=== PATIENT | male | born 1975 | race Caucasian/White ===

== ENCOUNTER 2021-12-31 11:08 | Emergency (ER) | payer OTHER, SELFPAY ==
[2021-12-31 11:18] VITALS: BP 113/76; PULSE 88; RESP 12; TEMP 36.4; O2SAT 100
--- NOTE | 2021-12-31 11:29 | ED.URI ---
HPI - URI/Sore Throat General Chief Complaint: Upper Respiratory Infection Stated Complaint: cough, congestion Time Seen by Provider: 12/31/21 11:30 Source: patient Mode of arrival: ambulatory Limitations: no limitations History of Present Illness HPI Narrative: Carlyle Myers is a 46 yo male with a PMH of high cholesterol, who said symptoms since last of sore throat and congestion and cough when he lies down. He has taken NyQuil Related Data Allergies Allergy/AdvReac Type Severity Reaction Status Date / Time amoxicillin Allergy Unknown Skin Verified 12/31/21 11:15 Reaction cephalexin Allergy Unknown Skin Verified 12/31/21 11:15 Reaction Review of Systems Review of Systems: CONSTITUTIONAL: Denies fever, chills, sweats. EYES: Denies visual changes, redness, discharge. ENT: Denies rhinorrhea, has congestion, has sore throat, otalgia. CARDIOVASCULAR: Denies chest pain, palpitations, edema. RESPIRATORY: Denies dyspnea, wheezing, has cough GASTROINTESTINAL: Denies abdominal pain, nausea, vomiting, diarrhea. GENITOURINARY: Denies dysuria, hematuria, abnormal discharge SKIN: Denies rash or itching. NEUROLOGIC: Denies numbness, or focal weakness. PSYCHIATRIC: Denies anxiety or depression. [facility] Past Medical History Medical History History of chicken pox Overweight (BMI 25.0-29.9) Family History Family History Father Heart disease Hypercholesterolemia Malignant neoplasm of prostate Social History Social History Alcohol intake: current Comments At time of signature, I agree with nursing past medical, surgical, social and family history. There is no relevant family history pertinent to the presenting complaint. Exam Narrative: GENERAL: This is a well-nourished, well-developed patient, in mild distress. HEAD: normocephalic, atraumatic. EYES: Sclera clear/white. Vision is grossly intact. EARS: External ears normal, auditory canals clear and without drainage, TMs normal without perforation. Hearing grossly intact. NOSE: External nose normal with nasal discharge, nares without redness, no rhinorrhea. THROAT: Mucous membranes moist, posterior pharynx erythema NECK: Neck supple, non-tender CARDIOVASCULAR: Regular rate and rhythm without murmurs, gallops, or rubs. RESPIRATORY: Clear to auscultation. Breath sounds equal bilaterally. No wheezes, rales, or rhonchi. GASTROINTESTINAL: Abdomen soft, non-tender, SKIN: warm, intact with no suspicious lesions or rash, good texture and turgor. NEURO: awake, alert, and oriented to person, place and time. There were no obvious focal neurologic abnormalities. Steady gait EXTREMITIES: Normal range of motion. BACK: Nontender without deformity Course Course Emergency Course: Patient comes to [facility] with complaints of sore throat cough and congestion x7 days COVID test done Started on Tessalon, prednisone Push fluids May use Cepacol for sore throat Level of Care: Express Care Visit Vital Signs Vital signs: Vital Signs Temperature 97.6 F 12/31/21 11:18 Pulse Rate 88 12/31/21 11:18 Respiratory Rate 12 12/31/21 11:18 Blood Pressure 113/76 12/31/21 11:18 Pulse Oximetry 100 12/31/21 11:18 Temperature 97.6 F 12/31/21 11:18 Pulse Rate 88 12/31/21 11:18 Respiratory Rate 12 12/31/21 11:18 Blood Pressure 113/76 12/31/21 11:18 Pulse Oximetry 100 12/31/21 11:18 MDM - URI/Sore Throat Differential Diagnosis Differential diagnosis: Likely upper respiratory infection, viral infection, influenza, pharyngitis and other Lab Data Labs: Lab Results 12/31/21 Range/Units 11:32 POC SARS CoV-2 Ag Negative (Negative) Critical Care Time Critical Care Time Critical Care Time: No Discharge Plan Discharge Clinical Impression: Upper respiratory infection
== END 2021-12-31 11:32 | disposition home or self-care (01) ==
PROVIDERS: Emergency Provider Nurse Practitioner; PCP Family Medicine
DX: J06.9 Acute upper respiratory infection, unspecified (principal); Z20.822 Contact with and (suspected) exposure to COVID-19
CPT/HCPCS: 87426; 99213; C9803; G0463

== ENCOUNTER → 2022-11-26 07:59 | Outpatient (CLI) | payer OTHER, SELFPAY ==
--- NOTE | ~2022-11-26 | XR_ITS ---
XR knee RT 3V 11/26/2022 08:12 INDICATION: Right knee pain PROCEDURE: 3 views right knee COMPARISON: No prior studies for comparison. FINDINGS: Fracture, dislocation or subluxation is not identified. No significant joint effusion. The soft tissues appear within normal limits. No foreign bodies are identified. IMPRESSION: 1: NO ACUTE BONE OR JOINT ABNORMALITY IDENTIFIED. Reviewed, dictated and finalized at location B.
== END ==
PROVIDERS: PCP Family Medicine; Visit Provider Nurse Practitioner
DX: M25.561 Pain in right knee (principal)
CPT/HCPCS: 73562

== ENCOUNTER 2023-08-12 08:14 | Outpatient (CLI) | payer OTHER, SELFPAY ==
[2023-08-12 09:16] LABS: Alanine Aminotransferase 40 U/L (16-63); Alkaline Phosphatase 101 U/L (46-116); Anion Gap 5 mmol/L (8-16); Aspartate Amino Transferase 17 U/L (15-37); Bilirubin,Total 0.4 mg/dL (0.00-1.00); Blood Urea Nitrogen 14 mg/dL (7-18); Calcium 8.5 mg/dL (8.5-10.1); Carbon Dioxide 31 mmol/L (21-32); Chloride 102 mmol/L (98-108); Cholesterol 239 mg/dL (0-200); Estimated Glomerular Filt Rate > 60; Glucose 99 mg/dL (70-99); HDL Direct 47 mg/dL (40-60); LDL Cholesterol Calculated 175 mg/dL (<130); Osmolality Calculated 286 mOsm/kg (285-295); Potassium 4.4 mmol/L (3.5-5.1); Prostate Specific Antigen 3.8 ng/mL (< OR = 4.0); Sodium 138 mmol/L (136-145); Total Protein 7.3 g/dL (6.4-8.2); Triglycerides 83 mg/dL (0-150)
== END 2023-08-12 08:15 | disposition home or self-care (01) ==
LOC: CHSLAB 08:15
PROVIDERS: PCP Family Medicine; Visit Provider Family Medicine
DX: E78.2 Mixed hyperlipidemia (principal); Z12.5 Encounter for screening for malignant neoplasm of prostate
CPT/HCPCS: 36415; 80053; 80061; 84153; G0103

== ENCOUNTER 2023-08-17 05:47 | Day surgery (SDC) | payer OTHER, SELFPAY ==
[2023-08-05 13:26] VITALS: BMI 30.8
--- NOTE | 2023-08-17 04:16 | P.PNAN_ITS ---
Anes - Initial Pre Proc Eval Procedure: Operation Date: 08/17/23 07:30 Proposed Procedures p Screening Colonoscopy - Marck Nation MD Date/Time: 08/17/23 04:16 Surgeon: Marck Nation MD Pre Op Diagnosis: Neoplasm Screening Patient Data Age: 48 Gender: M Height: 1.78 m Weight: 97.522 kg Allergies Allergy/AdvReac Type Severity Reaction Status Date / Time amoxicillin Allergy Unknown Skin Verified 08/17/23 06:28 Reaction cephalexin Allergy Unknown Skin Verified 08/17/23 06:28 Reaction Home Medications Medication Instructions Recorded Confirmed Type sildenafil 100 mg tablet 100 mg PO DAILY PRN sexual 08/04/23 08/09/23 Rx activity #30 tabs sodium,potassium,mag sulfates 17.5 See Rx Instructions PO .COMPLEX 08/05/23 08/09/23 Rx gram-3.13 gram-1.6 gram oral soln #354 mL (Suprep Bowel Prep Kit) Patient hx anesthesia problems: none Family hx anesthesia problems: none Results Review: All pre-operative results and documents have been reviewed as part of the pre- operative evaluation. [facility] Past Medical History Medical History History of chicken pox Overweight (BMI 25.0-29.9) Family History Family History Father Heart disease Hypercholesterolemia Malignant neoplasm of prostate Social History Social History Smoking status: Never smoker Alcohol intake: current Drinks per week: 2 Substance use type: does not use Lack of Transportation: No Lack of Food: Never True Current Housing: I Have Housing Concerned About Future Housing: No Difficulty Paying Gas/Electric Bills: No Difficulty Paying for Meds: No Currently Unemployed: No Education: Master's Degree or Higher Difficulty w/ Childcare or Family Care: No Living arrangements: with family Spiritual care concerns: No Anes - Eval Final PreProcedure Day of Procedure 08/17/23 04:16 Patient weight: obese Heart: regular rate and rhythm Lungs: clear to auscultation Airway: Mallampati scale class II Neurological: alert and oriented Last oral intake: >/= 8 hours ASA classification: II Emergent: no Anesthetic plan: proceed Anesthesia type and monitoring: general GIVS and standard monitoring Results Review: All pre-operative results and documents have been reviewed as part of the pre- operative evaluation. Informed Consent: The patient's anesthetic plan and its attendant risks and benefits were discussed with the patient/family/POA. Questions were solicited and answers provided to the satisfaction of the patient/family/POA.
[2023-08-17 06:10] VITALS: BP 120/86; PULSE 85; RESP 20; TEMP 36.8; O2SAT 98
[2023-08-17] MEDS: LACTATED RINGERS 1,000 ML 150 ML IV CONT (06:31)
--- NOTE | 2023-08-17 07:12 | P.HP_ITS ---
History of Present Illness History of Present Illness Consent: Risks, benefits, and alternatives have been discussed and questions answered. Patient agrees to proceed with procedure. Chief complaint: Neoplasm Screening Narrative: Carlyle Myers is a 48 year old male Presents for screening colonoscopy. He states that his current weight appetite and bowel movements are normal. He denies any blood in his stools. He has had no abdominal pain. He has had no w eight loss. Review of Systems Review of Systems: Review of systems is noncontributory PMFSH Past Medical History Medical History History of chicken pox Overweight (BMI 25.0-29.9) Family History Family History Father Heart disease Hypercholesterolemia Malignant neoplasm of prostate Social History Social History Smoking status: Never smoker Alcohol intake: current Drinks per week: 2 Substance use type: does not use Lack of Transportation: No Lack of Food: Never True Current Housing: I Have Housing Concerned About Future Housing: No Difficulty Paying Gas/Electric Bills: No Difficulty Paying for Meds: No Currently Unemployed: No Education: Master's Degree or Higher Difficulty w/ Childcare or Family Care: No Living arrangements: with family Spiritual care concerns: No Meds Home Medications and Allergies Home Medications Medication Instructions Recorded Confirmed Type sildenafil 100 mg tablet 100 mg PO DAILY PRN sexual 08/04/23 08/09/23 Rx activity #30 tabs sodium,potassium,mag sulfates 17.5 See Rx Instructions PO .COMPLEX 08/05/23 08/09/23 Rx gram-3.13 gram-1.6 gram oral soln #354 mL (Suprep Bowel Prep Kit) Allergies Allergy/AdvReac Type Severity Reaction Status Date / Time amoxicillin Allergy Unknown Skin Verified 08/17/23 06:28 Reaction cephalexin Allergy Unknown Skin Verified 08/17/23 06:28 Reaction Vital Signs Vital Signs - 24 hr 08/17/23 06:10 Temperature 98.2 F Pulse Rate 85 Respiratory Rate 20 Blood Pressure 120/86 Pulse Oximetry 98 Oxygen Delivery Room Air Exam Narrative: Physical exam reveals patient to be alert. Vital signs stable. HEENT exam is unremarkable. Is anicteric. Lungs are clear to auscultation and percussion. Heart is without Murmur or extra sounds. Abdomen bowel sounds are present soft nontender with no organomegaly. The digital external rectal exam is normal. Assessment and Plan Assessment and plan (1) Colon cancer screening: Code(s): Z12.11 - Encounter for screening for malignant neoplasm of colon Status: Acute Assessment and Plan: patient presents today for screening colonoscopy. He appears to be at his for colon polyps.
[2023-08-17 07:36] VITALS: BP 135/96; PULSE 71; RESP 14; O2SAT 97
[2023-08-17 07:46] VITALS: BP 132/90; PULSE 75; RESP 16; O2SAT 99
[2023-08-17 07:56] VITALS: BP 122/88; PULSE 66; RESP 16; O2SAT 99
[2023-08-17 08:05] VITALS: BP 109/73; PULSE 64; RESP 16; O2SAT 98
--- NOTE | 2023-08-17 08:06 | SUR.PHASEII ---
0800; PT GRIMACING. C/O ABDOMINAL PAIN OT LLQ/LT MID QUAD. ASSISTED TO LAY ON LT SIDE. KNEES UP. PT ALSO C/O LT SHOULDER PAIN. VSS. FAMILY AT BEDSIDE. PT P,W,D. DR MARIO NOTIFIED. [id number]; PT LAYING ON BACK AGAIN. STATES ABDOMINAL PAIN UNCOMFORTABLE AT 5/10.
--- NOTE | 2023-08-17 08:10 | SUR.PHASEII ---
PT NO LONGER GRIMACING. STATES ABDOMEN PAIN NOW 2/. ENCOURAGED PT TO LAY ON HIS SIDE WITH KNEES UP
--- NOTE | 2023-08-17 08:25 | SUR.PHASEII ---
0814; DR HERNANDEZ NOTIFIED OF PT C/O LLQ ABDOMINAL PAIN. WAS 5/ NOW 09/24. ALSO LT SHOULDER MILD PAIN. ENCOURAGED LAYING ON SIDE WITH KNEES UP.
--- NOTE | 2023-08-17 11:10 | WPDANESPN ---
Anes - Prog Note Post-Op Date/Time: 08/17/23 11:10 Cardiovascular status: normal Respiratory status: normal Airway patency: baseline Mental status: baseline Post-Op hydration status: normal Vital Signs: Last Vital Signs Temp 36.8 C 08/17/23 06:10 Pulse 64 08/17/23 08:05 Resp 16 08/17/23 08:05 BP 109/73 08/17/23 08:05 Pulse Ox 98 08/17/23 08:05 O2 Del Method Room Air 08/17/23 08:05 Pain Score (VAS): 2 I/O: Intake & Output 08/16/23 08/17/23 08/17/23 23:59 07:59 15:59 Intake Total 1000 Balance 1000 Post-procedural complaints: none Patient Feedback: Patient satisfied with anesthetic care. Other Findings: Patient vital signs back to baseline. Patient denies nausea and vomiting. Patient reports some abdominal discomfort and left shoulder pain (the shoulder he was laying on). Seems to have improved and Dr. Nation informed. Patient told if pain worsens to go to ED. Patient OK for discharge.
== END 2023-08-17 08:26 | disposition home or self-care (01) ==
PROVIDERS: PCP Family Medicine; Visit Provider Internal Medicine Gastroenterology
PROC: 0DJD8ZZ Inspection of Lower Intestinal Tract, Via Natural or Artificial Opening Endoscopic (ICD-10-PCS; CPT 45378; principal; 2023-08-17 07:30)
DX: Z12.11 Encounter for screening for malignant neoplasm of colon (principal)
CPT/HCPCS: 45378